=== PATIENT | female | born 2000 | race Caucasian/White ===

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

== ENCOUNTER 2023-04-08 14:34 | Emergency (ER) | payer BC, SELFPAY ==
[2023-04-08 14:53] VITALS: BP 115/79; PULSE 105; RESP 18; TEMP 37.2; O2SAT 100
[2023-04-08 15:13] LABS: Bilirubin Negative (Negative); Blood Trace-intact (Negative); Clarity Clear (Clear); Glucose Negative (Negative); Ketones Negative (Negative); Leukocyte Esterase Negative (Negative); Nitrite Negative (Negative); Urobilinogen 0.2 mg/dL (Up to 0.2)
[2023-04-08 15:24] LABS: Bacteria Moderate HPF (Negative); C & S Indicated? No/Sq. Contamination; Casts Negative LPF (Negative); Crystals Negative HPF (Negative); Epithelial Cells Many HPF (Negative); Mucus Negative (Negative); RBC 0-2 HPF (0-2); WBC 0-2 HPF (0-5)
--- NOTE | 2023-04-08 15:47 | ED.GENADUL_ITS ---
Discharge Plan Disposition Patient Disposition: Home Discharge Details Clinical Impression: Abscess of left groin Primary Care Provider: Brandee Epperson ED Provider: Ni Luna Home Meds and New Rx's Prescriptions: New cephalexin 500 mg tablet 500 mg PO BID 10 Days Qty: 20 0RF No Action desogestrel-ethinyl estradiol [Apri] 1 EACH tablet 1 tab-cap PO DAILY Qty: 3 3RF naproxen sodium [Aleve] 220 mg Capsule 2 tab PO BID PRN [id number] [Day Multi-Symp Flu-Severe Cold] 10-20-500 mg Powder In Packet 1 tab PO PRN hydroxyzine HCl 50 mg Tablet 50 mg PO BID PRN aripiprazole [Abilify] 5 mg Tablet 5 mg PO DAILY duloxetine 60 mg Capsule,Delayed Release(Dr/Ec) 120 mg PO DAILY Discharge Instructions Instructions: Abscess Incision and Drainage (DC) Additional Instructions: Packing was placed into the opening of the incision this needs to be removed within 3 days. If it falls out before then that is okay. The incision may continue to drain and that is okay. May apply warm compresses to the area. You may soak in a warm clean water after the packing is removed but not while the packing is in place. Take the antibiotic twice a day with yogurt or probiotic as directed. Please take Tylenol or Ibuprofen with food every 4-6 hours as needed for pain and swelling. Follow up with primary care provider in 3-5 days. Return to ED sooner if any worsening redness, swelling or concerns. Increase oral fluids. Stand Alone Forms: Work Release Referrals: Brandee Epperson MD [Primary Care Provider] - 3 days Medical Decision Making 22-year-old female presents to the ER with chief complaint of left-sided perineum abscess which began a couple of days ago. Patient states that she had similar abscess 2 weeks ago to the other side which eventually went away on its own after applying Neosporin. She reports that she was unable to sit or do anything for 2 weeks with the previous abscess and lost her job due to this. She was not placed on any antibiotics recently. She denies any problems urinating burning with urination abdominal pain or any other associated symptoms. The abscess is approximately 3 cm x 3 cm, it does feel fluctuant. Discussed treatment options with patient and the benefits and risks of each. Discussed conservative management for warm compresses and antibiotics and follow-up care which she verbalized understanding. I also did discuss infiltration of anesthetic and I&D she verbalized understanding and agrees to the I&D. Let topical ordered I did explain the procedure to her she verbalized understanding. Cephalexin 500 mg p.o. ordered here and 800 mg ibuprofen. 1647: See procedure note, I&D of abscess performed, patient tolerated well. Moderate amount of purulent fluid expressed. Patient felt better after procedure. I did discuss home care including to have the packing removed in 3 days. I did discussed return instructions to return here if it gets any worse. She verbalizes understanding. Patient is to take the antibiotic twice a day for the next 10 days. This text was generated using [employer] dictation system, please disregard any oddities of phrase or misspellings. HPI General Mode of arrival: ambulatory . Date/Time Provider Initiated Documentation: 04/08/23 15:06 . Limitations to Documentation: no limitations . Information obtained by: patient, RN notes reviewed and old records reviewed . HPI Narrative: 22-year-old female presents to the ER with chief complaint of left-sided perineum abscess which began a couple of days ago. Patient states that she had similar abscess 2 weeks ago to the other side which eventually went away on its own after applying Neosporin. She reports that she was unable to sit or do anything for 2 weeks with the previous abscess and lost her job due to this. She was not placed on any antibiotics recently. She denies any problems urinating burning with urination abdominal pain or any other associated symptoms . The abscess is approximately 3 cm x 3 cm, it does feel fluctuant. Related Data Home Medications Medication Instructions Recorded Confirmed desogestrel 0.15 mg-ethinyl 1 tab-cap PO DAILY ##3 12/13/17 09/10/18 estradiol 0.03 mg tablet (Apri) naproxen sodium 220 mg capsule 2 tab PO BID PRN 09/10/18 09/10/18 (Aleve) phenylephrine 10 mg-DM 20 1 tab PO PRN 09/10/18 mg-acetaminophen 500 mg oral powder packet (Day Multi-Symptom Flu-Severe Cold) aripiprazole 5 mg tablet (Abilify) 5 mg PO DAILY 04/08/23 04/08/23 cephalexin 500 mg tablet 500 mg PO BID 10 days #20 tabs 04/08/23 duloxetine 60 mg capsule,delayed 120 mg PO DAILY 04/08/23 04/08/23 release hydroxyzine HCl 50 mg tablet 50 mg PO BID PRN 04/08/23 04/08/23 Previous Rx's Medication Instructions Recorded desogestrel 0.15 mg-ethinyl 1 tab-cap PO DAILY ##3 12/13/17 estradiol 0.03 mg tablet (Apri) cephalexin 500 mg tablet 500 mg PO BID 10 days #20 tabs 04/08/23 Allergies Allergy/AdvReac Type Severity Reaction Status Date / Time No Known Allergies Allergy Unverified 09/10/18 11:53 General Stated Complaint: [employer] JILL: 3 Review of Systems All systems reviewed & are unremarkable except as noted in HPI and below Integumentary/Breasts Skin/Breast: Reports as per HPI, Reports erythema and Reports skin swelling PFSH All Active Problems (Updated 04/08/23 @ 16:50 by Ni Luna NP) Abscess of left groin (Acute) Family History Father Essential hypertension Grandfather Pancreatic cancer paternal Grandmother Ovarian cancer paternal Social History Smoking/Tobacco Use Status: Current-Occasional Tobacco Type: e-cigarettes Smoking risk assessment performed?: Yes Alcohol Intake: current Alcohol Intake frequency: a few times a month Drug use: Occasionally Substance use type: marijuana Additional Social history: homeless Exam Const General: cooperative and healthy appearing Nutritional Appearance: average body habitus Orientation: alert, awake and oriented x3 External Female Exam: externally tender and other (Left-sided perineum abscess please see) Female genitals images: 1. Approximately 3 cm x 3 cm area of erythema, swelling and fluctuance with palpation. Tender to the touch. Course Vital Signs Vital signs: Vital Signs Temperature 37.2 C 04/08/23 14:53 Pulse 105 H 04/08/23 14:53 Respiratory Rate 18 04/08/23 14:53 Blood Pressure 115/79 04/08/23 14:53 Pulse Oximetry 100 04/08/23 14:53 Temperature 37.2 C 04/08/23 14:53 Temperature Source Temporal Artery Scan 04/08/23 14:53 Pulse 105 H 04/08/23 14:53 Respiratory Rate 18 04/08/23 14:53 Respiratory Effort Normal, Non-Labored 04/08/23 14:58 Blood Pressure 115/79 04/08/23 14:53 Blood Pressure Position Sitting 04/08/23 14:53 Pulse Oximetry 100 04/08/23 14:53 Oxygen Delivery Method Room Air 04/08/23 14:53 Oxygen Flow Rate 0 04/08/23 14:53 Lab/Test Results Lab/Test Results: Laboratory Tests Range/Units 04/08/23 15:00 Urine Color (Yellow) Yellow Urine Clarity (Clear) Clear Urine pH (5-8) 7.0 Ur Specific [place] (1.005-1.025) 1.010 Urine Protein (Negative) mg/dL Negative Urine Ketones (Negative) mg/dL Negative Urine Blood (Negative) Trace-intact H Urine Nitrite (Negative) Negative Urine Bilirubin (Negative) Negative Urine Urobilinogen (Up to 0.2) mg/dL 0.2 Ur Leukocyte Esterase (Negative) Negative Urine RBC (0-2) HPF 0-2 Urine WBC (0-5) HPF 0-2 Ur Epithelial Cells (Negative) HPF Many Urine Crystals (Negative) HPF Negative Urine Bacteria (Negative) HPF Moderate Urine Casts (Negative) LPF Negative Urine Mucus (Negative) Negative Ur Culture Indicated? No/Sq. Contamination Urine Glucose (Negative) mg/dL Negative POC- Test(urine) Negative Procedures Abscess I/D Site: Bartholin's Gland (Left Perineum) Side (if applicable): Left Sedation/analgesia: None Local Anesthetic: Lidocaine 1% and With Epi Amount of anesthesia used (mL): 4 Technique: Incised with #11 Blade Amount of fluid expressed (mL): 10 Irrigation: No Packing used?: Iodoform (Approximately 3 inches) Complications: Other (No complications) PAWSS Have you Been Recently Intoxicated or Drunk Within the Last 30 days?: No Have you Ever Experienced Previous Episodes of Alcohol Withdrawal?: No Have you ever Experienced Withdrawal Seizures?: No Have you ever Experienced Delirium Tremens(DT)s?: No Have you ever undergone Alcohol Rehabilitation Treatment (i.e, inpt ot outpatien t treatment programs)?: No Have you ever Experienced Blackouts?: No Have you ever Combined Alcohol with other Downers within the last 90 days?: No Have you ever Combined Alcohol with any other Substance of Abuse during the last 90 days?: No Positive Blood Alcohol level on Presentation? [PCS.BAL]: No Evidence of Increased Autonomic Activity (i.e. HR>120, tremor, sweating, agitat ion, nausea)?: No Result: 0
[2023-04-08] MEDS: Ibuprofen 800 MG TAB PO (15:52)
[2023-04-08] MEDS: Cephalexin 500 MG CAP PO (15:52)
[2023-04-08] MEDS: Cephalexin 500 MG CAP, 2 CAPS/BTL PO (15:52)
[2023-04-08] MEDS: Lidocaine/Epinephri/Tetracaine Topical Gel 3 ML TP (15:53)
[2023-04-08 16:55] VITALS: PULSE 80; RESP 16; O2SAT 99
== END 2023-04-08 16:56 | disposition home or self-care (01) ==
PROVIDERS: Physician Assistant; Emergency Provider Registered Nurse Emergency; PCP Family Medicine
DX: N75.1 Abscess of Bartholin's gland (principal)
CPT/HCPCS: 10061; 81025; 99283; 81003; 81015; 99284